=== PATIENT | female | born 1950 | race Caucasian/White ===

== ENCOUNTER → 2018-06-08 | Outpatient (CLI) | payer MEDICARE ==
[~2018-06-08] MED LIST: ALPR.25; ASPI325EC; ATEN50; ATOR10; CLON.3; ERGO400; HYDRA50; LEVSOD75; TELM80
== END | disposition home or self-care (01) ==
LOC: LAB SHORT 14:20 → PLD 14:20
DX: D48.5 Neoplasm of uncertain behavior of skin (principal)
CPT/HCPCS: 88305

== ENCOUNTER 2019-09-07 09:26 | Day surgery (SDC) | payer MEDICARE ==
--- NOTE | 2019-09-07 12:13 | NUR ---
"DAY SURGERY RN | REPORT TO MADAI TRAVIS. PATIENT STATED SOME NAUSEA. ALL VSS. GAVE PATIENT STANISLAW MIST AND WASHCLOTH. NO OTHER ISSUES. SITE C/D/I."
--- NOTE | 2019-09-07 12:29 | NUR ---
1205 PT REPORT FROM SIOBHAN eagle RN. ASSUMED CARE OF DALE. AWAKE ORIENTED. STATES NAUSEA IS BETTER, COOL CLOTH REMOVED FROM FOREHEAD, PROVIDED JELLO. WILL CONTINUE TO MONITOR.
== END 2019-09-07 23:07 | disposition home or self-care (01) ==
LOC: US 09:26
DX: R94.5 Abnormal results of liver function studies (principal); E03.9 Hypothyroidism, unspecified; I10 Essential (primary) hypertension; M19.90 Unspecified osteoarthritis, unspecified site; Z79.899 Other long term (current) drug therapy; Z91.041 Radiographic dye allergy status; Z88.0 Allergy status to penicillin; Z91.048 Other nonmedicinal substance allergy status; Z86.73 Personal history of transient ischemic attack (TIA), and cerebral infarction without residual deficits; Z79.82 Long term (current) use of aspirin
CPT/HCPCS: 47000; 76942